=== PATIENT | female | born 1955 | race Caucasian/White ===

== ENCOUNTER 2017-07-02 12:23 | Observation (INO) | payer MEDICARE, MEDICAID ==
[~2017-07-02] VITALS: Ht 165.1 cm; Wt 64.3 kg
[2017-07-02] MEDS ORDERED: LORazepam 1MG TABLET PO ONE (12:30)
[2017-07-02 12:45] LABS: BASOPHILS # (AUTO) 0.14 x10^3/uL (0-0.1); BASOPHILS % (AUTO) 2 % (0-1); EOSINOPHILS # (AUTO) 0.15 x10^3/uL (0-0.4); EOSINOPHILS % (AUTO) 2 % (1-7); LYMPHOCYTES # (AUTO) 3.75 x10^3/uL (1-3.4); LYMPHOCYTES % (AUTO) 39 % (22-44); MD NO; MEAN CORPUSCULAR HEMOGLOBIN 32.4 pg (27.0-34.8); MEAN CORPUSCULAR HGB CONC 33.7 g/dL (32.4-35.8); MEAN CORPUSCULAR VOLUME 96.1 fL (80-100); MEAN PLATELET VOLUME 8.4 fL (7.4-10.4); MONOCYTES # (AUTO) 0.41 x10^3/uL (0.2-0.8); MONOCYTES % (AUTO) 4 % (2-9); NEUTROPHILS # (AUTO) 5.24 x10^3/uL (1.8-6.8); NEUTROPHILS % (AUTO) 54 % (42-75); PLATELET COUNT 297 x10^3/uL (130-400); RED BLOOD COUNT 5.22 x10^6/uL (3.82-5.3)
[2017-07-02 12:51] LABS: ALANINE AMINOTRANSFERASE 19 U/L (12-78); ALBUMIN 3.5 g/dL (3.4-5.0); ANION GAP 8 mmol/L (5-15); CALCIUM 8.7 mg/dL (8.5-10.1); CHLORIDE 109 mmol/L (98-107); CREATININE 0.91 mg/dL (0.55-1.02); SALICYLATE LEVEL 7.5 mg/dL (2.8-20.0)
[2017-07-02] MEDS ORDERED: RISP1TAB3 PO (12:57)
[2017-07-02] MEDS ORDERED: DULO30CA2 PO (12:57)
[2017-07-02] MEDS ORDERED: POTASSIUM CHLORIDE 20 MEQ TAB.ER.PRT PO ONE (13:00)
[2017-07-02 13:04] LABS: ACETAMINOPHEN < 2 mcg/mL (10-30); ALKALINE PHOSPHATASE 86 U/L (45-117); BILIRUBIN,TOTAL 0.4 mg/dL (0.2-1.0); TOTAL PROTEIN 7.3 g/dL (6.4-8.2)
[2017-07-02] MEDS ORDERED: ACETAMINOPHEN 325 MG TABLET PO PRN (13:30)
[2017-07-02] MEDS ORDERED: DIPHENHYDRAMINE 50 MG CAPSULE PO PRN ×2 (13:30)
[2017-07-02] MEDS: NICOTINE 14MG/24 HR PATCH.TD24 TD SCH (13:30)
[2017-07-02] MEDS ORDERED: ONDANSETRON ODT 4 MG PO PRN (13:30)
[2017-07-02] MEDS ORDERED: DOCUSATE 100 MG CAPSULE PO PRN (13:30)
[2017-07-02] MEDS ORDERED: NICOTINE 14MG/24 HR PATCH.TD24 ONE (23:45)
[2017-07-02] MEDS ORDERED: LORazepam 1MG TABLET ONE (23:46)
[2017-07-02] MEDS ORDERED: POTASSIUM CHLORIDE 20 MEQ TAB.ER.PRT ONE (23:46)
[2017-07-03 07:41] LABS: AMPHETAMINE SCREEN, URINE Negative (Negative); BARBITURATE SCREEN, URINE Negative (Negative); BENZODIAZEPINE SCREEN, URINE Negative (Negative); CANNABINOID SCREEN, URINE Negative (Negative); COCAINE SCREEN, URINE Negative (Negative); METHADONE SCREEN, URINE Negative (Negative); OPIATE SCREEN, URINE Negative (Negative)
[2017-07-03] MEDS ORDERED: NICOTINE 14MG/24 HR PATCH.TD24 ONE (08:31)
[2017-07-03] MEDS: DULOXETINE 30 MG CAPSULE.DR PO SCH (08:42)
[2017-07-03] MEDS: RISPERIDONE 1 MG TABLET PO SCH (08:43)
[2017-07-03] MEDS: NICOTINE 14MG/24 HR PATCH.TD24 TD SCH (13:30)
[2017-07-03 17:41] LABS: ANION GAP 3 mmol/L (5-15); CALCIUM 8.8 mg/dL (8.5-10.1); CHLORIDE 113 mmol/L (98-107); CREATININE 0.78 mg/dL (0.55-1.02)
[2017-07-04 05:25] LABS: BASOPHILS # (AUTO) 0.06 x10^3/uL (0-0.1); BASOPHILS % (AUTO) 1 % (0-1); EOSINOPHILS # (AUTO) 0.41 x10^3/uL (0-0.4); EOSINOPHILS % (AUTO) 5 % (1-7); LYMPHOCYTES # (AUTO) 3.64 x10^3/uL (1-3.4); LYMPHOCYTES % (AUTO) 42 % (22-44); MD NO; MEAN CORPUSCULAR HEMOGLOBIN 32.3 pg (27.0-34.8); MEAN CORPUSCULAR VOLUME 94.9 fL (80-100); MEAN PLATELET VOLUME 8.4 fL (7.4-10.4); MONOCYTES # (AUTO) 0.85 x10^3/uL (0.2-0.8); MONOCYTES % (AUTO) 10 % (2-9); NEUTROPHILS % (AUTO) 43 % (42-75); PLATELET COUNT 266 x10^3/uL (130-400); RED CELL DISTRIBUTION WIDTH 14.4 % (9.6-15.2)
[2017-07-04] MEDS: DULOXETINE 30 MG CAPSULE.DR PO SCH (10:32)
[2017-07-04] MEDS: NEOSPORIN OINT, 15GM TP SCH ×3 (10:35→21:00)
[2017-07-04] MEDS: RISPERIDONE 1 MG TABLET PO SCH (10:56)
[2017-07-04] MEDS: NICOTINE 14MG/24 HR PATCH.TD24 TD SCH (13:30)
[2017-07-04 18:47] VITALS: BP 124/77
[2017-07-05 00:21] VITALS: BP 131/83
[2017-07-05 07:12] VITALS: BP 119/73
[2017-07-05] MEDS: DULOXETINE 30 MG CAPSULE.DR PO SCH (08:45)
[2017-07-05] MEDS: RISPERIDONE 1 MG TABLET PO SCH ×2 (08:45→09:00)
[2017-07-05] MEDS: NEOSPORIN OINT, 15GM TP SCH (11:56)
[2017-07-05] MEDS: NICOTINE 14MG/24 HR PATCH.TD24 TD SCH (13:30)
[2017-07-05 14:18] VITALS: BP 126/78
== END 2017-07-05 17:11 ==
LOC: ED 13:01 → EDIP 13:02 → SUATTDRO 13:16 → ED 14:02 → 4EST 07-04 17:39
PROVIDERS: ADMIT Internal Medicine; ATTEND Internal Medicine
DX: T14.91XA Suicide attempt, initial encounter (principal); F41.9 Anxiety disorder, unspecified; E87.6 Hypokalemia; F32.9 Major depressive disorder, single episode, unspecified; F17.200 Nicotine dependence, unspecified, uncomplicated; X83.8XXA Intentional self-harm by other specified means, initial encounter; Y93.89 Activity, other specified; Y92.89 Other specified places as the place of occurrence of the external cause; Y99.8 Other external cause status
CPT/HCPCS: 36415; 80048; 80053; 80307; 80329; 84443; 85025; 99285; G0378; G0480

== ENCOUNTER 2019-12-10 09:33 | Emergency (ER) | payer MEDICARE ==
[~2019-12-10] VITALS: Ht 170.2 cm; Wt 54.3 kg
[~2019-12-10 09:33] MED LIST: BENZ0.5T35 PO; DULO30CA2 PO; LEVO750T6 PO; RISP1TAB3 PO; ZIPR60CA2 PO
--- NOTE | 2019-12-10 09:41 | NUR ---
COPYRIGHT CLERK: PT AMBULATED BACK TO ROOM W/ A STEADY GAIT.
[2019-12-10] MEDS ORDERED: METHOCARBAMOL 750 MG TABLET ONE (09:57)
[2019-12-10] MEDS ORDERED: KETOROLAC 30 MG/1 ML ONE (09:57)
[2019-12-10] MEDS ORDERED: METHOCARBAMOL 750 MG TABLET PO ONE (10:00)
[2019-12-10] MEDS ORDERED: KETOROLAC 30 MG/1 ML IM ONE (10:00)
[2019-12-10 11:01] VITALS: BP 139/78
--- NOTE | 2019-12-10 11:01 | NUR ---
PT UPRIGHT ON GURNEY AWAKE & MORE COMFORTABLE AFTER PAIN MEDS, RESPONDS APPROP TO STAFF, NAD, COMFORT MEASURES PROVIDED, CALL LIGHT WITHIN REACH.
--- NOTE | 2019-12-10 12:20 | NUR ---
TASK RN: PT D/C WITH D/C SUMMARY AND SCRIPTS. ALL QUESTIONS ANSWERED. PT AMBULATES TO REGISTRATION DESK WITH STEADY GAIT FOR D/C HOME. PT DENIES ANY OTHER NEEDS PERTAINING TO THIS VISIT.
== END 2019-12-10 12:23 | disposition home or self-care (01) ==
LOC: ED 11:21
DX: S39.012A Strain of muscle, fascia and tendon of lower back, initial encounter (principal); M47.9 Spondylosis, unspecified; F17.210 Nicotine dependence, cigarettes, uncomplicated; X58.XXXA Exposure to other specified factors, initial encounter; Y93.89 Activity, other specified; Y92.89 Other specified places as the place of occurrence of the external cause; Y99.8 Other external cause status
CPT/HCPCS: 72110; 96372; 99283; J1885